=== PATIENT | female | born 1955 | race Caucasian/White ===

== ENCOUNTER 2016-12-03 11:12 | Day surgery (SDC) | payer OTHER ==
[~2016-12-03] VITALS: Ht 170.2 cm; Wt 81.7 kg
[~2016-12-03 11:12] MED LIST: 0.9% Sodium Chloride 1,000 ML IV SCH; ASCO100089 PO; CHOL5000 PO; CYAN10008 PO; LACT1CAP73 PO; PANT40TA3 PO; Sodium Chloride LOK Flush 10 mL Syringe IV PRN; [UNRECOGNIZED DRUG - OTHER] PO; fentaNYL-PF 50 mCg/mL 2 mL Inj IVPUSH PRN
[2016-12-03 11:51] VITALS: BP 138/92; PULSE 62; RESP 14; O2SAT 97
[2016-12-03 12:59] VITALS: BP 104/71; PULSE 54; RESP 14; O2SAT 95
[2016-12-03 13:09] VITALS: BP 95/62; PULSE 58; RESP 14; O2SAT 96
[2016-12-03 13:19] VITALS: BP 116/72; PULSE 64; RESP 16; O2SAT 97
--- NOTE | 2016-12-03 14:46 | ENDO ---
[address] [address] ENDOSCOPY PROCEDURE PATIENT: SARAH LEDESMA : 1955 MR#: [id number] ADMIT: 12/03/2016 JOB ID: [id number] PROCEDURE: Esophagogastroduodenoscopy. INDICATION: Patient with a history of a duodenal ulcer by history only; no prior endoscopy. INSTRUMENT USED: [id number]. ANESTHESIA: Patient's ASA classification and Mallampati score are two and two. PROCEDURE DETAILS: After informed consent was obtained, the patient was brought into the GI suite, where she was placed on oxygen via nasal cannula and monitored with continuous pulse oximeter, telemetry, and blood pressure monitoring. A time-out was performed, then she was placed in the left lateral decubitus position and medications were administered for sedation. A bite block was placed. The standard esophagogastroduodenoscopy scope was inserted through the bite block and advanced under direct visualization to the second portion of the duodenum. FINDINGS: 1. Normal appearing duodenal bulb, first and second portion. No evidence of ulcer was noted. 2. Normal appearing pylorus. 3. Normal appearing antrum. 4. Retroflexed views in the gastric body revealed a 3-4 cm submucosal mass involving the greater curvature in the proximal portion of the stomach. The mass was probed with biopsy forceps and appeared to be firm. 5. The cardia appeared normal. 6. The GE junction was regular at 37 cm. 7. Normal-appearing esophagus. IMPRESSION: Large submucosal mass causing extrinsic compression of the proximal gastric body. RECOMMENDATIONS: CT scan of the abdomen. PROCEDURE: Colonoscopy. COMPLICATIONS: None. BLOOD LOSS: Less than 5 mL. PROCEDURE PERFORMED: Colonoscopy. INDICATION: Colon cancer screening. ANESTHESIA: Please see nurse's notes for medications. INSTRUMENT USED: The PCF-H180AL. PREPARATION QUALITY: Good. PROCEDURE DETAILS: After completion of the EGD exam, the patient was then turned and a digital rectal exam was performed which was unremarkable. The colonoscope was then inserted into the rectum and advanced under direct visualization to the cecum, which was identified by the presence of the ileocecal valve and the appendiceal orifice. Once the cecum was reached, the colonoscope was withdrawn back into the rectum as the mucosa and lumen were examined. In the rectum, retroflexion was performed. Following retroflexion, the remaining air in the rectum was suctioned and the procedure was completed. FINDINGS: Normal exam from rectum to cecum. IMPRESSION: Normal colonoscopy. RECOMMENDATIONS: Repeat colonoscopy in 10 years, sooner if symptoms should dictate. COMPLICATIONS: None. ESTIMATED BLOOD LOSS: Zero.
--- NOTE | 2016-12-06 14:29 | PATH ---
SURGICAL PATHOLOGY Attending Physician:Luciano Albert CASE STATUS: Signed Out PATIENT NAME: SARAH LEDESMA PID: [id number] : 1955 DATE COLLECTED:12/03/2016 20:34 SPECIMEN: Gastric, Biopsy CLINICAL HISTORY: PLAQUE SECOND PORTION DUODENUM BIOPSY CX 1). RANDOM GASTRIC BIOPSY FINAL DIAGNOSIS: 1.RANDOM GASTRIC BIOPSY: ANTRAL AND BODY-TYPE MUCOSA WITH NO DIAGNOSTIC ALTERATIONS. Negative for Helicobacter organisms. Negative for intestinal metaplasia. Negative for dysplasia and malignancy. ICD10 code R10.13 GROSS DESCRIPTION: The specimen is labeled "random gastric" and consists of 4 portions of tissue which aggregate to 0.3 x 0.3 x 0.2 CM. The specimen is entirely submitted in one cassette. 12/03/2016 [facility] MICRO DESCRIPTION: See diagnosis. ICD-9 CODES: CPT CODES: 1: 93463 Electronically Signed Out Vilma Roberts MD [facility] Pathology [facility] [address], [place] [address] Technical component performed at [facility], [address] [place] [address] Ave[address], [address]
== END 2016-12-03 23:59 | disposition home or self-care (01) ==
LOC: END 11:12
PROVIDERS: ATTEND Internal Medicine Gastroenterology
DX: Z12.11 Encounter for screening for malignant neoplasm of colon (principal); K26.9 Duodenal ulcer, unspecified as acute or chronic, without hemorrhage or perforation; Z79.899 Other long term (current) drug therapy
CPT/HCPCS: 43239; 99153; G0121; G0500; J2250; J3010; J7030